=== PATIENT | female | born 1960 | race Caucasian/White ===

== ENCOUNTER 2018-05-28 13:39 | Emergency (ER) | payer BC ==
[2018-05-28 13:43] VITALS: BP 185/86
[2018-05-28 14:10] LABS: BASO % 0.1 % (0.0-1.0); HEMATOCRIT 43.1 % (36.0-47.0); HEMOGLOBIN 14.7 g/dl (12.0-15.5); LYMPH # 1.6 10^3/uL (1.5-4.5); MEAN CORPUSCULAR HEMOGLOBIN 30.9 pg (27.0-33.0); MEAN CORPUSCULAR HGB CONC 34.1 g/dl (32.0-36.5); MEAN CORPUSCULAR VOLUME 90.7 fl (80.0-96.0); MONO # 0.4 10^3/uL (0.0-0.8); MONO % 3.9 % (0.0-5.0); NEUTROPHILS # 7.4 10^3/uL (1.8-7.7); NEUTROPHILS % 78.6 % (36.0-66.0); PLATELET COUNT, AUTOMATED 304 10^3/uL (150-450); RED BLOOD COUNT 4.75 10^6/uL (4.00-5.40); WHITE BLOOD COUNT 9.4 10^3/uL (4.0-10.0)
[2018-05-28 14:40] LABS: BLOOD UREA NITROGEN 18 MG/DL (7-18); CALCIUM LEVEL 9.7 MG/DL (8.8-10.2); CARBON DIOXIDE LEVEL 22 MEQ/L (21-32); CHLORIDE LEVEL 106 MEQ/L (98-107); CREATININE FOR GFR 1.14 MG/DL (0.55-1.30); GLOMERULAR FILTRATION RATE 51.8 (>45); GLUCOSE, FASTING 163 MG/DL (70-100); POTASSIUM SERUM 3.4 MEQ/L (3.5-5.1); SODIUM LEVEL 138 MEQ/L (136-145)
[2018-05-28 15:18] LABS: CK-MB VALUE MASS < 1.0 NG/ML (<3.6); CPK CREATINE PHOSPHOKINASE 53 U/L (26-192); FREE T4 1.49 NG/DL (0.76-1.46); MB/CK RELATIVE INDEX 1.89 (< OR =4); THYROID STIMULATING HORMONE 0.051 uIU/ML (0.358-3.740); TROPONIN I < 0.02 NG/ML (< 0.10)
--- NOTE | 2018-05-28 15:26 | REP ---
Clinical: Dyspnea . Comparison: None . Technique: PA and lateral. Findings: The mediastinum and cardiac silhouette are normal. Very subtle right basilar atelectasis cannot be excluded. No further consolidation. No effusion or pneumothorax. Skeletal structures intact. Impression: 1. Very subtle right basilar atelectasis cannot be excluded. Electronically Signed by Patrick Walsh MD 05/28/2018 03:18 P
[2018-05-28 16:02] LABS: INFLUENZA A AMPLIFICATION NEGATIVE (NEGATIVE); INFLUENZA B AMPLIFICATION NEGATIVE (NEGATIVE)
[2018-05-28] MEDS ORDERED: PROZ20CA11 PO (16:37)
[2018-05-28] MEDS ORDERED: LEVO112T2 PO (16:38)
[2018-05-28] MEDS ORDERED: PSEU30TA21 PO (16:47)
--- NOTE | 2018-05-28 21:18 | ECGEPIP ---
Stationary ECG Study [facility] - ED Test Date: 2018-05-28 Pat Name: ATA DICKSON Department: Room: - Gender: F Production Team Member: RODRIGO : 1960 Requested By: Gonsalo Canchola Order Number: [id number] Reading MD: Indu Razo Measurements Intervals Topmost Rate: 114 P: 37 OR: 166 QRS: 7 QRSD: 89 T: -21 QT: 285 QTc: 392 Interpretive Statements SINUS TACHYCARDIA MODERATE VOLTAGE CRITERIA FOR LVH, CONSIDER NORMAL VARIANT POSSIBLE INFERIOR MYOCARDIAL INFARCTION, PROBABLY OLD WITH POSTERIOR EXTENSION ABNORMAL RHYTHM ECG NSTTW ABNORMALITY NO PRIOR FOR COMPARISON Electronically Signed On 05-28-2018 21:17:53 EDT by Indu Razo
== END 2018-05-28 17:22 | disposition home or self-care (01) ==
LOC: M ED 13:39
DX: R00.0 Tachycardia, unspecified (principal); R06.02 Shortness of breath; T44.995A Adverse effect of other drug primarily affecting the autonomic nervous system, initial encounter; E05.90 Thyrotoxicosis, unspecified without thyrotoxic crisis or storm; T38.1X1A Poisoning by thyroid hormones and substitutes, accidental (unintentional), initial encounter; F32.9 Major depressive disorder, single episode, unspecified; E03.9 Hypothyroidism, unspecified; E66.9 Obesity, unspecified; Z88.1 Allergy status to other antibiotic agents; Z88.8 Allergy status to other drugs, medicaments and biological substances; Z79.899 Other long term (current) drug therapy

== ENCOUNTER → 2018-07-02 | Outpatient (REF) | payer BC ==
[~2018-07-02] MED LIST: LEVO112T2 PO; PROZ20CA11 PO; PSEU30TA21 PO
[2018-07-02 09:14] LABS: HEMATOCRIT 43.4 % (36.0-47.0); HEMOGLOBIN 14.7 g/dl (12.0-15.5); MEAN CORPUSCULAR HEMOGLOBIN 30.9 pg (27.0-33.0); MEAN CORPUSCULAR HGB CONC 33.9 g/dl (32.0-36.5); MEAN CORPUSCULAR VOLUME 91.2 fl (80.0-96.0); PLATELET COUNT, AUTOMATED 249 10^3/uL (150-450); RED BLOOD COUNT 4.76 10^6/uL (4.00-5.40); WHITE BLOOD COUNT 5.6 10^3/uL (4.0-10.0)
[2018-07-02 09:39] LABS: ALBUMIN 3.7 GM/DL (3.2-5.2); ALT/SGPT 23 U/L (12-78); BILIRUBIN,TOTAL 0.6 MG/DL (0.2-1.0); BLOOD UREA NITROGEN 17 MG/DL (7-18); CALCIUM LEVEL 8.6 MG/DL (8.8-10.2); CARBON DIOXIDE LEVEL 23 MEQ/L (21-32); CHLORIDE LEVEL 109 MEQ/L (98-107); CHOLESTEROL LEVEL 274 MG/DL (<200); CHOLESTEROL RISK RATIO 3.859 (<5); CREATININE FOR GFR 0.88 MG/DL (0.55-1.30); GLOMERULAR FILTRATION RATE > 60.0 (>45); GLUCOSE, FASTING 89 MG/DL (70-100); HDL CHOLESTEROL 71 MG/DL (>40); LDL CHOLESTEROL 166 MG/DL (<100); NON-HDL-C 203 MG/DL; POTASSIUM SERUM 4.4 MEQ/L (3.5-5.1); SODIUM LEVEL 140 MEQ/L (136-145); THYROXINE (T4) 8.8 UG/DL (4.5-12.0); TOTAL PROTEIN 6.6 GM/DL (6.4-8.2); TRIGLYCERIDES LEVEL 184 MG/DL (<150)
[2018-07-02 10:00] LABS: TOTAL 25(OH) VITAMIN D 23.3 NG/ML (30.0-100.0)
[2018-07-02 10:24] LABS: TOTAL T3 60.5 NG/DL (60.0-181.0)
[2018-07-02 10:32] LABS: HEMOGLOBIN A1c 5.3 %
== END ==
LOC: M LAB REF 09:04
PROVIDERS: ATTEND Family Medicine
DX: I10 Essential (primary) hypertension (principal); E03.9 Hypothyroidism, unspecified

== ENCOUNTER → 2018-08-01 | Outpatient (REF) | payer BC ==
[2018-08-01 10:48] LABS: THYROID STIMULATING HORMONE 0.132 uIU/ML (0.358-3.740); THYROXINE (T4) 15.5 UG/DL (4.5-12.0); TOTAL 25(OH) VITAMIN D 42.9 NG/ML (30.0-100.0)
== END ==
LOC: M LAB REF 09:00
PROVIDERS: ATTEND Family Medicine
DX: E03.9 Hypothyroidism, unspecified (principal)

== ENCOUNTER → 2019-03-16 | Outpatient (CLI) | payer BC ==
[2019-03-16 11:12] LABS: HEMATOCRIT 45.9 % (36.0-47.0); HEMOGLOBIN 14.6 g/dl (12.0-15.5); MEAN CORPUSCULAR HEMOGLOBIN 29.1 pg (27.0-33.0); MEAN CORPUSCULAR HGB CONC 31.8 g/dl (32.0-36.5); MEAN CORPUSCULAR VOLUME 91.4 fl (80.0-96.0); PLATELET COUNT, AUTOMATED 261 10^3/uL (150-450); RED BLOOD COUNT 5.02 10^6/uL (4.00-5.40); WHITE BLOOD COUNT 5.1 10^3/uL (4.0-10.0)
[2019-03-16 11:25] LABS: ALBUMIN 3.9 GM/DL (3.2-5.2); ALT/SGPT 22 U/L (12-78); BILIRUBIN,TOTAL 0.7 MG/DL (0.2-1.0); BLOOD UREA NITROGEN 15 MG/DL (7-18); CALCIUM LEVEL 9.5 MG/DL (8.8-10.2); CARBON DIOXIDE LEVEL 24 MEQ/L (21-32); CHLORIDE LEVEL 108 MEQ/L (98-107); CHOLESTEROL LEVEL 259 MG/DL (<200); CHOLESTEROL RISK RATIO 3.083 (<5); CREATININE FOR GFR 0.83 MG/DL (0.55-1.30); GLOMERULAR FILTRATION RATE > 60.0 (>45); GLUCOSE, FASTING 89 MG/DL (70-100); HDL CHOLESTEROL 84 MG/DL (>40); LDL CHOLESTEROL 153 MG/DL (<100); NON-HDL-C 175 MG/DL; POTASSIUM SERUM 4.2 MEQ/L (3.5-5.1); SODIUM LEVEL 140 MEQ/L (136-145); THYROID STIMULATING HORMONE 0.035 uIU/ML (0.358-3.740); TRIGLYCERIDES LEVEL 112 MG/DL (<150)
[2019-03-16 11:27] LABS: HEMOGLOBIN A1c 5.6 %
[2019-03-18 13:02] LABS: TOTAL 25(OH) VITAMIN D 78.5 NG/ML (30.0-100.0); TOTAL T3 101.8 NG/DL (60.0-181.0)
== END ==
LOC: M WUC 08:48
PROVIDERS: ATTEND Family Medicine
DX: E03.9 Hypothyroidism, unspecified (principal); R53.83 Other fatigue; R73.03 Prediabetes

== ENCOUNTER → 2021-06-21 | Outpatient (CLI) | payer OTHER ==
[2021-06-21 10:17] LABS: HEMATOCRIT 42.5 % (36.0-47.0); HEMOGLOBIN 14.5 g/dl (12.0-15.5); MEAN CORPUSCULAR HGB CONC 34.1 g/dl (32.0-36.5); PLATELET COUNT, AUTOMATED 201 10^3/uL (150-450); RED BLOOD COUNT 4.83 10^6/uL (4.00-5.40); WHITE BLOOD COUNT 5.2 10^3/uL (4.0-10.0)
[2021-06-21 11:08] LABS: HEMOGLOBIN A1c 5.3 %
[2021-06-21 11:24] LABS: ALBUMIN 3.6 GM/DL (3.2-5.2); ALT/SGPT 20 U/L (12-78); BILIRUBIN,TOTAL 0.6 MG/DL (0.2-1.0); BLOOD UREA NITROGEN 16 MG/DL (7-18); CALCIUM LEVEL 9.2 MG/DL (8.8-10.2); CARBON DIOXIDE LEVEL 26 MEQ/L (21-32); CHLORIDE LEVEL 111 MEQ/L (98-107); CHOLESTEROL LEVEL 209 MG/DL (<200); CHOLESTEROL RISK RATIO 3.215 (<5); GLOMERULAR FILTRATION RATE > 60.0 (>45); GLUCOSE, FASTING 79 MG/DL (70-100); HDL CHOLESTEROL 65 MG/DL (>40); LDL CHOLESTEROL 122 MG/DL (<100); NON-HDL-C 144 MG/DL; POTASSIUM SERUM 4.3 MEQ/L (3.5-5.1); SODIUM LEVEL 141 MEQ/L (136-145); THYROXINE (T4) 15.8 UG/DL (4.5-12.0); TOTAL 25(OH) VITAMIN D 83.5 NG/ML (30.0-100.0); TOTAL PROTEIN 6.4 GM/DL (6.4-8.2); TOTAL T3 151.5 NG/DL (60.0-181.0); TRIGLYCERIDES LEVEL 111 MG/DL (<150)
== END ==
LOC: M PLALAB 08:35
PROVIDERS: ATTEND Family Medicine
DX: D64.9 Anemia, unspecified (principal); R53.83 Other fatigue; E03.9 Hypothyroidism, unspecified

== ENCOUNTER → 2021-08-25 | Outpatient (CLI) | payer OTHER ==
[~2021-08-25] MED LIST changes: +ISOVUE-370 76% 100ML VIAL As Ordered ONE
== END ==
LOC: M RAD 12:30
PROVIDERS: ATTEND Family Medicine
DX: R06.00 Dyspnea, unspecified (principal); J84.9 Interstitial pulmonary disease, unspecified
CPT/HCPCS: 71275; Q9967

== ENCOUNTER 2022-03-30 07:19 | Inpatient (IN) | payer OTHER ==
[~2022-03-30] VITALS: Ht 170.2 cm; Wt 90.9 kg
[~2022-03-30 07:19] MED LIST changes: -ISOVUE-370 76% 100ML VIAL As Ordered ONE
[2022-03-30] MEDS ORDERED: ERGO500029 PO (07:30)
[2022-03-30] MEDS ORDERED: CLON0.5T2 PO (07:30)
[2022-03-30] MEDS ORDERED: FLUO40CA PO (07:30)
[2022-03-30] MEDS ORDERED: TRAZ-252 PO (07:30)
[2022-03-30] MEDS ORDERED: LEVO150T7 PO (07:30)
[2022-03-30] MEDS ORDERED: ALBU8.5H INH (07:30)
[2022-03-30 08:01] LABS: HEMATOCRIT 37.9 % (36.0-47.0); HEMOGLOBIN 12.9 g/dl (12.0-15.5); MEAN CORPUSCULAR HEMOGLOBIN 30.9 pg (27.0-33.0); MEAN CORPUSCULAR VOLUME 90.9 fl (80.0-96.0); PLATELET COUNT, AUTOMATED 217 10^3/uL (150-450); RED BLOOD COUNT 4.17 10^6/uL (4.00-5.40); WHITE BLOOD COUNT 5.9 10^3/uL (4.0-10.0)
[2022-03-30 08:25] LABS: BLOOD UREA NITROGEN 14 MG/DL (9-23); CALCIUM LEVEL 8.9 MG/DL (8.3-10.6); CARBON DIOXIDE LEVEL 22 MMOL/L (20-31); CHLORIDE LEVEL 110 MMOL/L (98-107); CREATININE FOR GFR 0.72 MG/DL (0.55-1.30); GLOMERULAR FILTRATION RATE > 60.0 (>45); GLUCOSE, FASTING 105 MG/DL (74-106); POTASSIUM SERUM 3.8 MMOL/L (3.5-5.1); SODIUM LEVEL 141 MMOL/L (136-145)
[2022-03-30] MEDS ORDERED: diazePAM 10MG/2ML SYRINGE IV ONE ×2 (09:25→11:45)
[2022-03-30] MEDS ORDERED: MECLIZINE 25 MG TABLET PO ONE (09:25)
[2022-03-30] MEDS ORDERED: PROCHLORPERAZINE 10MG 2ML VIAL IV PRN (10:30)
[2022-03-30 12:41] LABS: RSV AMPLIFICATION NEGATIVE (NEGATIVE)
[2022-03-30] MEDS ORDERED: HOME MED LIST COMPLETE! XX SCH (13:50)
[2022-03-30] MEDS ORDERED: ONDANSETRON 4MG 2ML VIAL IV PRN (14:25)
[2022-03-30] MEDS: LEVOTHYROXINE 150MCG TABLET (0.15MG) PO SCH (14:41)
[2022-03-30 15:45] VITALS: BP 148/84
[2022-03-30] MEDS: clonazePAM 0.5 MG TAB PO SCH ×2 (15:56→21:30)
[2022-03-30] MEDS: MECLIZINE 25 MG TABLET PO SCH ×2 (15:56→21:30)
[2022-03-30] MEDS: traZODone 50 MG TAB PO SCH (21:00)
[2022-03-30 23:47] VITALS: BP 119/69
[2022-03-30] MEDS: ACETAMINOPHEN TAB 650MG DOSE (2X325MG) PO PRN (23:57)
[2022-03-31 05:50] LABS: HEMATOCRIT 38.6 % (36.0-47.0); LYMPH # 1.4 10^3/uL (1.5-5.0); LYMPH % 21.2 % (24.0-44.0); MEAN CORPUSCULAR HGB CONC 33.7 g/dl (32.0-36.5); MEAN CORPUSCULAR VOLUME 92.1 fl (80.0-96.0); MONO # 0.5 10^3/uL (0.0-0.8); NEUTROPHILS # 4.7 10^3/uL (1.5-8.5); NEUTROPHILS % 70.2 % (36.0-66.0); PLATELET COUNT, AUTOMATED 230 10^3/uL (150-450); RED BLOOD COUNT 4.19 10^6/uL (4.00-5.40); WHITE BLOOD COUNT 6.6 10^3/uL (4.0-10.0)
[2022-03-31] MEDS: LEVOTHYROXINE 150MCG TABLET (0.15MG) PO SCH (06:00)
[2022-03-31] MEDS: ACETAMINOPHEN TAB 650MG DOSE (2X325MG) PO PRN ×2 (06:02→14:49)
[2022-03-31 06:06] VITALS: BP 135/74
[2022-03-31 06:08] LABS: BLOOD UREA NITROGEN 8 MG/DL (9-23); CALCIUM LEVEL 8.6 MG/DL (8.3-10.6); CARBON DIOXIDE LEVEL 24 MMOL/L (20-31); CHLORIDE LEVEL 108 MMOL/L (98-107); GLOMERULAR FILTRATION RATE > 60.0 (>45); GLUCOSE, FASTING 97 MG/DL (74-106); POTASSIUM SERUM 3.8 MMOL/L (3.5-5.1); SODIUM LEVEL 139 MMOL/L (136-145)
[2022-03-31] MEDS: FLUoxetine 20MG CAP PO SCH (08:25)
[2022-03-31] MEDS: clonazePAM 0.5 MG TAB PO SCH ×3 (08:25→21:03)
[2022-03-31] MEDS: MECLIZINE 25 MG TABLET PO SCH ×4 (08:27→21:02)
[2022-03-31] MEDS ORDERED: LORATADINE 10 MG TAB PO ONE (10:00)
[2022-03-31] MEDS: ALBUTEROL 90 MCG/ACT 8GM HFA INHALER INH SCH ×3 (13:00→20:00)
[2022-03-31 14:54] VITALS: BP 119/68
[2022-03-31 15:13] LABS: THYROID STIMULATING HORMONE 0.117 uIU/ML (0.55-4.78)
[2022-03-31] MEDS: traZODone 50 MG TAB PO SCH (21:03)
[2022-03-31 21:10] VITALS: BP 119/65
[2022-04-01] MEDS: LEVOTHYROXINE 150MCG TABLET (0.15MG) PO SCH (06:00)
[2022-04-01 06:25] VITALS: BP 133/73
[2022-04-01] MEDS ORDERED: ONDA4TAB6 PO (07:34)
[2022-04-01] MEDS ORDERED: MECL-86 PO (07:34)
[2022-04-01] MEDS: ALBUTEROL 90 MCG/ACT 8GM HFA INHALER INH SCH ×3 (08:00→16:00)
[2022-04-01 08:21] LABS: FREE T4 1.48 NG/DL (0.89-1.76); THYROID STIMULATING HORMONE 0.104 uIU/ML (0.55-4.78)
[2022-04-01] MEDS: MECLIZINE 25 MG TABLET PO SCH ×2 (08:40→16:08)
[2022-04-01] MEDS: clonazePAM 0.5 MG TAB PO SCH ×2 (08:40→16:08)
[2022-04-01] MEDS: FLUoxetine 20MG CAP PO SCH (08:40)
[2022-04-01] MEDS ORDERED: ISOVUE-370 76% 100ML VIAL As Ordered ONE (16:48)
[2022-04-01] MEDS ORDERED: PRED10TA2 PO (18:40)
[2022-04-01] MEDS ORDERED: LEVO1TAB40 PO (18:40)
== END 2022-04-01 19:41 | disposition home or self-care (01) | DRG 149 ==
LOC: EDBD 07:19 → EDSEX 07:19 → M ED 07:19 → M ED INP 14:23 → ENRESERV 15:01 → M MS5PR 15:30
PROVIDERS: ADMIT Internal Medicine Nephrology; ATTEND Internal Medicine Nephrology
PROC: B246ZZZ Ultrasonography of Right and Left Heart (ICD-10-PCS; principal; 2022-04-01)
DX: H81.399 Other peripheral vertigo, unspecified ear (principal); E03.9 Hypothyroidism, unspecified; J45.909 Unspecified asthma, uncomplicated; F41.9 Anxiety disorder, unspecified; E66.9 Obesity, unspecified; R33.9 Retention of urine, unspecified; F32.A Depression, unspecified; I49.3 Ventricular premature depolarization; Z79.890 Hormone replacement therapy; Z79.899 Other long term (current) drug therapy; Z20.822 Contact with and (suspected) exposure to COVID-19; Z88.0 Allergy status to penicillin; Z88.6 Allergy status to analgesic agent; Z88.1 Allergy status to other antibiotic agents; Z88.8 Allergy status to other drugs, medicaments and biological substances; Z91.013 Allergy to seafood; R00.2 Palpitations; R06.02 Shortness of breath; R92.8 Other abnormal and inconclusive findings on diagnostic imaging of breast

== ENCOUNTER → 2022-04-07 | Outpatient (CLI) | payer BC, OTHER ==
[~2022-04-07] MED LIST changes: +ALBU8.5H INH; +CLON0.5T2 PO; +ERGO500029 PO; +FLUO40CA PO; +LEVO150T7 PO; +LEVO1TAB40 PO; +MECL-86 PO; +ONDA4TAB6 PO; +PRED10TA2 PO; +TRAZ-252 PO
== END ==
LOC: M CARPUL 07:32
PROVIDERS: ATTEND Internal Medicine Critical Care Medicine
DX: R06.00 Dyspnea, unspecified (principal)

== ENCOUNTER → 2022-06-23 | Outpatient (CLI) | payer OTHER | LOC: M RAD 12:43 | PROVIDERS: ATTEND Internal Medicine Critical Care Medicine | DX: I27.20 Pulmonary hypertension, unspecified (principal) | CPT/HCPCS: 71046; 78582; A9540; A9567 ==

== ENCOUNTER → 2023-12-24 | Outpatient (CLI) | payer OTHER ==
[~2023-12-24] MED LIST changes: +ONDA-282 PO; -ONDA4TAB6 PO
[2023-12-24 08:52] LABS: HEMATOCRIT 42.1 % (36.0-47.0); HEMOGLOBIN 14.1 g/dl (12.0-15.5); MEAN CORPUSCULAR HEMOGLOBIN 30.1 pg (27.0-33.0); MEAN CORPUSCULAR HGB CONC 33.5 g/dl (32.0-36.5); PLATELET COUNT, AUTOMATED 239 10^3/uL (150-450); RED BLOOD COUNT 4.68 10^6/uL (4.00-5.40); WHITE BLOOD COUNT 4.4 10^3/uL (4.0-10.0)
[2023-12-24 09:14] LABS: HEMOGLOBIN A1c 5.2 % (4.0-6.0)
[2023-12-24 09:15] LABS: ALBUMIN 3.6 G/DL (3.2-5.2); ALKALINE PHOSPHATASE 79 U/L (46-116); ALT/SGPT 16 U/L (7.0-40); AST/SGOT 13 U/L (<34); BILIRUBIN,TOTAL 0.8 MG/DL (0.3-1.2); BLOOD UREA NITROGEN 17 MG/DL (9-23); CALCIUM LEVEL 10.2 MG/DL (8.3-10.6); CARBON DIOXIDE LEVEL 25 MMOL/L (20-31); CHLORIDE LEVEL 111 MMOL/L (98-107); CHOLESTEROL LEVEL 235 MG/DL (<200); CHOLESTEROL RISK RATIO 3.73 (<5); CREATININE FOR GFR 0.78 MG/DL (0.55-1.30); GLOMERULAR FILTRATION RATE > 60.0 (>45); GLUCOSE, FASTING 92 MG/DL (74-106); LDL CHOLESTEROL 149.4 MG/DL (<100); POTASSIUM SERUM 4.6 MMOL/L (3.5-5.1); SODIUM LEVEL 140 MMOL/L (136-145); TOTAL PROTEIN 6.5 G/DL (5.7-8.2); TRIGLYCERIDES LEVEL 113 MG/DL (<150)
[2023-12-24 09:16] LABS: THYROID STIMULATING HORMONE 0.016 uIU/ML (0.55-4.78)
[2023-12-24 09:17] LABS: TOTAL 25(OH) VITAMIN D 78.9 NG/ML (20.0-100.0)
== END ==
LOC: M LAB 08:12
PROVIDERS: ATTEND Family Medicine
DX: I10 Essential (primary) hypertension (principal); R53.83 Other fatigue; E03.9 Hypothyroidism, unspecified